=== PATIENT | male | born 1950 | race Caucasian/White ===

== ENCOUNTER 2017-03-29 15:26 | Inpatient (IN) | payer MEDICARE, BC ==
[~2017-03-29] VITALS: Ht 175.3 cm; Wt 95.1 kg
[2017-03-29 15:35] VITALS: BP 114/59; PULSE 102; RESP 20; TEMP 98.8; O2SAT 94
[2017-03-29 15:59] VITALS: TEMP 99.9
--- NOTE | 2017-03-29 16:00 | PD ---
HPI Chief Complaint: Fever Time Seen by Provider: 15:39 Travel History International Travel<30 days: No Contact w/Intl Traveler<30days: No Traveled to known affect area: No History of Present Illness HPI This is a 66-year-old male who is currently residing in a [facility]ci who has a spinal cord injury who presents to the emergency department with fever. He says he hasn't felt sick lately. He was evidently given Bactrim at his fci however he continued to have fever so they sent him to the emergency department. He does not have an indwelling Mckeon catheter. They also noticed some blood in his diaper around his urethra. PFSH Past Medical History Atrial Fibrillation: Yes Chest Pain: Yes Diabetes: Yes Patient Takes Glucophage: No Hypertension: Yes Past Surgical History Other Surgery: Yes (anterior cervical diskectomy & fusion) Social History Alcohol Use: No Tobacco Use: No Substance Use: No Allergies-Medications (Allergen,Severity, Reaction): Coded Allergies: No Known Allergies (Unverified , 03/29/17) Reported Meds & Prescriptions Reported Meds & Active Scripts Active Reported Alprazolam 0.25 Mg Tab 0.25 Mg PO TID PRN Senna Plus 8.6-50 mg (Sennosides-Docusate Sodium) 1 Tab Tab 2 Tab PO Gabapentin 100 Mg Cap 100 Mg PO TID Culturelle (Lactobacillus Rhamnosus (GG)) 10 B Cell Cap 1 Cap PO DAILY Polyethylene Glycol 3350 Powder (Polyethylene Glycol) 17 Gm Pow 17 Gm PO DAILY Testosterone (Testosterone (Bulk)) 1 Pow Pow 50 Mg TOPICAL DAILY Multaq (Dronedarone) 400 Mg Tab 400 Mg PO BID Famotidine 20 Mg Tab 20 Mg PO BID Furosemide 20 Mg Tab 20 Mg PO DAILY Glipizide 5 Mg Tab 5 Mg PO DAILY Take 30 minutes before a meal Lisinopril 2.5 Mg Tab 2.5 Mg PO DAILY Metoprolol Tartrate 25 Mg Tab 25 Mg PO BID Potassium Chloride ER (Potassium Chloride) 20 Meq Tab 20 Meq PO DAILY Levocetirizine 5 Mg Tab 5 Mg PO HS Ibuprofen 200 Mg Cap 200 Mg PO Q4H PRN Levothyroxine (Levothyroxine Sodium) 50 Mcg Tab 50 Mcg PO DAILY Culturelle (Lactobacillus Rhamnosus (GG)) 10 B Cell Cap 1 Cap PO DAILY Sulfamethoxazole-Trimethoprim 800-160 Mg Tab 1 Tab PO BID Review of Systems Except as stated in HPI: all other systems reviewed are Neg Physical Exam Narrative GENERAL:Well appearing, no acute distress SKIN: vesicular and crusted rash over the right shoulder extending down to the right forearm and up the right neck ending at the midline HEAD: Atraumatic. Normocephalic. EYES: Pupils equal and round. No injection or drainage. ENT: Moist mucous membranes NECK: Trachea midline. CARDIOVASCULAR: Regular rate and rhythm. No murmur appreciated. RESPIRATORY: Clear to auscultation. Breath sounds equal bilaterally. GASTROINTESTINAL: Abdomen soft, non-tender, nondistended. : small abrasion on the head of the penis immediately below the urethra bleeding MUSCULOSKELETAL: No obvious deformities. NEUROLOGICAL: Awake and alert. No obvious cranial nerve deficits. Weak in the right upper and right lower extremities. PSYCHIATRIC: Appropriate mood and affect; insight and judgment normal. Data Data Last Documented VS Vital Signs Date Time Temp Pulse Resp B/P Pulse Ox O2 Delivery O2 Flow Rate FiO2 03/29/17 15:59 99.9 03/29/17 15:35 102 20 114/59 94 Orders Complete Blood Count With Diff (03/29/17 15:39) Comprehensive Metabolic Panel (03/29/17 15:39) Lactic Acid Sepsis Protocol (03/29/17 15:39) Urinalysis - C+S If Indicated (03/29/17 15:39) Blood Culture (03/29/17 15:39) Chest, Single Ap (03/29/17 15:39) Blood Glucose (03/29/17 15:39) Ecg Monitoring (03/29/17 15:39) Iv Access Insert/Monitor (03/29/17 15:39) Oximetry (03/29/17 15:39) Oxygen Administration (03/29/17 15:39) Urinary Catheter Insert/Apply (03/29/17 16:01) Urine Culture (03/29/17 15:45) Cefepime Inj (Maxipime Inj) (03/29/17 16:45) Vancomycin Inj (Vancomycin Inj) (03/29/17 16:45) Sodium Chlor 0.9% 1000 Ml Inj (Ns 1000 M (03/29/17 16:45) Sodium Chlor 0.9% 1000 Ml Inj (Ns 1000 M (03/29/17 16:45) Sodium Chlor 0.9% 1000 Ml Inj (Ns 1000 M (03/29/17 16:41) Valacyclovir (Valtrex) (03/29/17 17:15) Admit Order (Ed Use Only) (03/29/17 17:19) Labs Laboratory Tests Test 03/29/17 03/29/17 15:40 15:45 White Blood Count 5.3 TH/MM3 Red Blood Count 3.07 MIL/MM3 Hemoglobin 10.7 GM/DL Hematocrit 31.8 % Mean Corpuscular Volume 103.5 FL Mean Corpuscular Hemoglobin 34.9 PG Mean Corpuscular Hemoglobin 33.7 % Concent Red Cell Distribution Width 14.7 % Platelet Count 65 TH/MM3 Mean Platelet Volume 8.2 FL Neutrophils (%) (Auto) 80.6 % Lymphocytes (%) (Auto) 12.6 % Monocytes (%) (Auto) 6.1 % Eosinophils (%) (Auto) 0.5 % Basophils (%) (Auto) 0.2 % Neutrophils # (Auto) 4.2 TH/MM3 Lymphocytes # (Auto) 0.7 TH/MM3 Monocytes # (Auto) 0.3 TH/MM3 Eosinophils # (Auto) 0.0 TH/MM3 Basophils # (Auto) 0.0 TH/MM3 CBC Comment AUTO DIFF Differential Comment AUTO DIFF CONFIRMED Sodium Level 139 MEQ/L Potassium Level 3.8 MEQ/L Chloride Level 104 MEQ/L Carbon Dioxide Level 26.9 MEQ/L Anion Gap 8 MEQ/L Blood Urea Nitrogen 19 MG/DL Creatinine 0.66 MG/DL Estimat Glomerular Filtration 120 ML/MIN Rate Random Glucose 90 MG/DL Lactic Acid Level 3.0 mmol/L Calcium Level 8.3 MG/DL Total Bilirubin 1.0 MG/DL Aspartate Amino Transf 17 U/L (AST/SGOT) Alanine Aminotransferase 18 U/L (ALT/SGPT) Alkaline Phosphatase 103 U/L Total Protein 6.4 GM/DL Albumin 2.6 GM/DL Urine Color YELLOW Urine Turbidity HAZY Urine pH 5.5 Urine Specific [place] 1.013 Urine Protein TRACE mg/dL Urine Glucose (UA) NEG mg/dL Urine Ketones NEG mg/dL Urine Occult Blood LARGE Urine Nitrite POS Urine Bilirubin NEG Urine Urobilinogen LESS THAN 2.0 MG/DL Urine Leukocyte Esterase LARGE Urine RBC 145 /hpf Urine WBC 124 /hpf Urine WBC Clumps FEW Urine Bacteria MANY /hpf Urine Mucus FEW /lpf Microscopic Urinalysis Comment CATH-CULTURE IND [facility] Medical Decision Making Medical Screen Exam Complete: Yes Emergency Medical Condition: Yes Interpretation(s) temp 99.9, tachycardic, normotensive no leukocytosis platelets 65 -> 93 on 03/24 macrocytic anemia electrolytes within normal limits lactic acid 3.0 Differential Diagnosis Urinary tract infection, pneumonia, viral syndrome, dehydration Narrative Course This is a 66-year-old male who presents to the emergency department with fever. He recently sustained a nontraumatic spinal cord lesion during neurosurgery leaving him with paralysis in the right side. He was placed on a monitor and an IV was established. Labs demonstrate a downward trending platelet count and a lactic acid of 3. He has an obvious urinary tract infection. On arrival he was started on broad-spectrum antibiotics. He was given 2-1/2 L of fluid in the setting of his elevated lactic acid. Patient will be admitted for continued antibiotic therapy. He also has a rash on his upper extremity which I think is herpes zoster. He was started on valacyclovir in the emergency department. Diagnosis Primary Impression: Severe sepsis Admitting Information Admitting Physician Requests: Admit Mindy Hale MD Mar 29, 2017 16:00
[2017-03-29 16:14] LABS: AUTOMATED NEUTROPHIL # 4.2 TH/MM3 (1.8-7.7); BASOPHIL % 0.2 % (0.0-2.0); EOSINOPHIL % 0.5 % (0.0-4.0); HEMATOCRIT 31.8 % (39.0-51.0); LYMPH % 12.6 % (9.0-44.0); LYMPHOCYTE # 0.7 TH/MM3 (1.0-4.8); MEAN CELL VOLUME 103.5 FL (80.0-100.0); MEAN CORPUSCULAR HEMOGLOBIN 34.9 PG (27.0-34.0); MEAN CORPUSCULAR HGB CONC 33.7 % (32.0-36.0); MONO % 6.1 % (0.0-8.0); NEUT % 80.6 % (16.0-70.0); PLATELET COUNT 65 TH/MM3 (150-450); RED BLOOD COUNT 3.07 MIL/MM3 (4.50-5.90); RED CELL DISTRIBUTION WIDTH 14.7 % (11.6-17.2); WHITE BLOOD COUNT 5.3 TH/MM3 (4.0-11.0)
[2017-03-29 16:16] LABS: HEMO FLAGS AUTO DIFF
[2017-03-29 16:24] LABS: BACTERIA, URINE MANY /hpf; BLOOD, URINE LARGE (NEG); COMMENT (UR) CATH-CULTURE IND; CULTURE IF INDICATED CATH CULTURE IND; GLUCOSE,URINE NEG (NEG); KETONE, URINE NEG (NEG); MUCUS URINE FEW /lpf (OCC); NITRITE,URINE POS (NEG); PH, URINE 5.5 (5.0-8.5); URINE COLOR YELLOW (YELLW/STRAW)
[2017-03-29] MEDS ORDERED: SODIUM CHLOR 0.9% 1000 ML INJ 700 ML IV ONE (16:41)
[2017-03-29] MEDS ORDERED: SODIUM CHLOR 0.9% 1000 ML INJ 1,000 ML IV ONE ×2 (16:45)
[2017-03-29] MEDS ORDERED: CEFEPIME INJ 2,000 MG in SODIUM CHLORIDE 0.9% INJ 100 ML IV ONE (16:45)
[2017-03-29] MEDS ORDERED: VANCOMYCIN INJ 1,300 MG in SODIUM CHLORID 0.9% 500 ML INJ 500 ML IV ONE (16:45)
[2017-03-29 16:51] LABS: SCAN/DIFF AUTO DIFF CONFIRMED
[2017-03-29 16:57] LABS: ANION GAP 8 MEQ/L (5-15); AST (GOT) 17 U/L (15-37); BICARBONATE 26.9 MEQ/L (21.0-32.0); BLOOD UREA NITROGEN 19 MG/DL (7-18); CHLORIDE 104 MEQ/L (98-107); GLOMERULAR FILTRATION RATE 120 ML/MIN (>89); POTASSIUM 3.8 MEQ/L (3.5-5.1); SODIUM (NA) 139 MEQ/L (136-145)
[2017-03-29 17:01] LABS: ALKALINE PHOSPHATASE 103 U/L (45-117); ALT (GPT) 18 U/L (12-78)
[2017-03-29] MEDS ORDERED: valACYclovir HCL 500 MG TAB PO ONE (17:15)
--- NOTE | 2017-03-29 17:19 | RADRPT ---
EXAM DATE/TIME: 03/29/2017 16:46 [place] COMPARISON: No previous studies available for comparison. INDICATIONS : Fever MEDICAL HISTORY : Diabetes mellitus type II. Hypertension Atrial Fib SURGICAL HISTORY : Fusion, cervical. CABG. ENCOUNTER: Initial ACUITY: 1 day PAIN SCORE: 0/10 LOCATION: Bilateral chest FINDINGS: A single view of the chest demonstrates the lungs to be symmetrically aerated without evidence of mas s, infiltrate or effusion. Minimal basilar atelectasis. Postoperative median sternotomy. CONCLUSION: 1. Minimal basilar atelectasis. Postop CABG. Blayne Dwyer MD on March 29, 2017 at 17:17 Board Certified Radiologist. This report was verified electronically.
[2017-03-29] MEDS ORDERED: TEST-55 TOPICAL (17:26)
[2017-03-29] MEDS ORDERED: LEVO50TA4 PO (17:26)
[2017-03-29] MEDS ORDERED: POTA-163 PO (17:26)
[2017-03-29] MEDS ORDERED: GLIP5TAB8 PO (17:26)
[2017-03-29] MEDS ORDERED: MULT400T PO (17:26)
[2017-03-29] MEDS ORDERED: GABA100C4 PO (17:26)
[2017-03-29] MEDS ORDERED: POLY17S PO (17:26)
[2017-03-29] MEDS ORDERED: SULF1TAB23 PO (17:26)
[2017-03-29] MEDS ORDERED: METO25TA3 PO (17:26)
[2017-03-29] MEDS ORDERED: CULT10CA4 PO ×2 (17:26)
[2017-03-29] MEDS ORDERED: FURO20TA PO (17:26)
[2017-03-29] MEDS ORDERED: LISI2.5T3 PO (17:26)
[2017-03-29] MEDS ORDERED: FAMO20TA2 PO (17:26)
[2017-03-29] MEDS ORDERED: SENN1TAB PO (17:26)
[2017-03-29] MEDS ORDERED: IBUP200C PO (17:26)
[2017-03-29] MEDS ORDERED: LEVOTAB PO (17:26)
[2017-03-29 17:39] VITALS: BP 116/55; PULSE 95; RESP 18; O2SAT 94
[2017-03-29] MEDS ORDERED: ALPR0.25 PO (17:45)
[2017-03-29 18:07] LABS: LACTIC ACID GHOST NOT REPORTABLE
[2017-03-29] MEDS ORDERED: ALPRAZolam 0.25 MG TAB PO PRN (18:15)
[2017-03-29] MEDS ORDERED: ACETAMINOPHEN 325 MG TAB PO PRN (18:15)
[2017-03-29] MEDS ORDERED: LACTULOSE SYRUP 20 GM/30 ML CUP PO PRN (18:15)
[2017-03-29] MEDS ORDERED: GLUCAGON 1 MG/ML VIAL OTHER PRN (18:15)
[2017-03-29] MEDS ORDERED: ONDANSETRON HCL 4 MG/2 ML VIAL IVP PRN (18:15)
[2017-03-29] MEDS ORDERED: MAGNESIUM HYDROXIDE SUSP 30 ML CUP PO PRN (18:15)
[2017-03-29] MEDS ORDERED: DEXTROSE 50% IN WATER 50 ML VIAL(D50) IV PRN (18:15)
[2017-03-29] MEDS ORDERED: ACETAMINOPHEN/HYDROcodone 325 MG/7.5 MG TAB PO PRN (18:15)
[2017-03-29] MEDS ORDERED: BISACODYL 10 MG SUPP RECTAL PRN (18:15)
[2017-03-29] MEDS ORDERED: SENNOSIDES 8.6 MG TAB PO PRN (18:15)
--- NOTE | 2017-03-29 18:23 | HHI.HP ---
HPI Service [facility] Primary Care Physician Non-Staff Admission Diagnosis urosepsis Diagnoses: Chief Complaint: UTI Travel History International Travel<30 Days: No Contact w/Intl Traveler <30 Da: No Traveled to Known Affected Are: No Sepsis Criteria SIRS Criteria (2 or more): Heart rate over 90 Severe Sepsis (+one): Lactate >2 History of Present Illness Written by Maxim Jara, acting as scribe for Dr. Blood on 03/29/17 at 18:01. 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 fib, HTN, DM, hypothyroidism, neuropathy, GERD who was sent from SNF for UTI. The patient is seen with his and brother at bedside. The patient is currently at SNF for rehabilitation due to recent spinal cord injury and paralysis. He was having fever and chills at SNF. Patient's reports temperature was 101.9. She states that they gave him Tylenol and Bactrim 1 cm into the ED. Patient states that he has been having lower abdominal discomfort for the past few days. He denies any previous dysuria or hematuria. Patient states he normally voids spontaneously at baseline. He denies any diarrhea, nausea, vomiting. He has been constipated. The patient has been having a rash on his right shoulder for the past 4 days. They thought that this might be do to a medication reaction. He denies any pain , burning, itching of the rash. He did have chickenpox as a child and has not received a shingles vaccine. 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 Atrial fibrillation Hypertension Diabetes mellitus Neuropathy GERD Hypothyroidism Past Surgical History ACDF Emergent lower back surgery Right knee surgery Reported Medications Alprazolam 0.25 Mg Tab 0.25 Mg PO TID PRN Senna Plus 8.6-50 mg (Sennosides-Docusate Sodium) 1 Tab Tab 2 Tab PO Gabapentin 100 Mg Cap 100 Mg PO TID Culturelle (Lactobacillus Rhamnosus (GG)) 10 B Cell Cap 1 Cap PO DAILY Polyethylene Glycol 3350 Powder (Polyethylene Glycol) 17 Gm Pow 17 Gm PO DAILY Testosterone (Testosterone (Bulk)) 1 Pow Pow 50 Mg TOPICAL DAILY Multaq (Dronedarone) 400 Mg Tab 400 Mg PO BID Famotidine 20 Mg Tab 20 Mg PO BID Furosemide 20 Mg Tab 20 Mg PO DAILY Glipizide 5 Mg Tab 5 Mg PO DAILY Take 30 minutes before a meal Lisinopril 2.5 Mg Tab 2.5 Mg PO DAILY Metoprolol Tartrate 25 Mg Tab 25 Mg PO BID Potassium Chloride ER (Potassium Chloride) 20 Meq Tab 20 Meq PO DAILY Levocetirizine 5 Mg Tab 5 Mg PO HS Ibuprofen 200 Mg Cap 200 Mg PO Q4H PRN Levothyroxine (Levothyroxine Sodium) 50 Mcg Tab 50 Mcg PO DAILY Culturelle (Lactobacillus Rhamnosus (GG)) 10 B Cell Cap 1 Cap PO DAILY Sulfamethoxazole-Trimethoprim 800-160 Mg Tab 1 Tab PO BID Allergies: Coded Allergies: No Known Allergies (Unverified , 03/29/17) Active Ordered Medications Current Medications Medications (Trade) Dose Ordered Sig/Lily Route Start Time Stop Time Status Last Admin Vancomycin HCl 1300 mg/Sodium Chloride 513 ml @ 250 mls/hr ONCE ONCE IV 03/29/17 16:45 03/29/17 18:48 03/29/17 17:41 (NS 1000 ml Inj) 1,000 ml @ 100 mls/hr Q10H IV 03/29/17 18:00 (NS Flush) 2 ml BID IV FLUSH 03/29/17 21:00 (Xanax) 0.25 mg TID PRN PO 03/29/17 18:15 UNV (Multaq) 400 mg BID PO 03/29/17 21:00 UNV (Pepcid) 20 mg BID PO 03/29/17 21:00 UNV (Lasix) 20 mg DAILY PO 03/30/17 09:00 UNV (Neurontin) 100 mg TID PO 03/30/17 09:00 UNV (Synthroid) 50 mcg DAILY PO 03/30/17 09:00 UNV (Lopressor) 25 mg BID PO 03/29/17 21:00 UNV (Miralax) 17 gm DAILY PO 03/30/17 09:00 UNV (KCl) 20 meq DAILY PO 03/30/17 09:00 UNV Non-Formulary Medication 1 cap DAILY PO 03/30/17 09:00 UNV Non-Formulary Medication 5 mg HS PO 03/29/17 21:00 UNV Non-Formulary Medication 2.5 mg 2.5 mg DAILY PO 03/30/17 09:00 UNV (Maxipime Inj/NS Inj) 100 ml @ 100 mls/hr Q12H IV 03/29/17 18:15 UNV Family History Mother had diabetes and heart disease Social History SNF resident Quit smoking 20 years ago Doesn't drink Physical Exam Vital Signs Vital Signs Date Time Temp Pulse Resp B/P Pulse Ox O2 Delivery O2 Flow Rate FiO2 03/29/17 17:39 95 18 116/55 94 Room Air 03/29/17 15:59 99.9 03/29/17 15:35 98.8 102 20 114/59 94 Physical Exam GENERAL: Well-developed well-nourished. In no acute distress. SKIN: Warm and dry. Crusted vesicular rash in dermatomal distribution over the right shoulder and back to the midline of the right chest. HEENT: Normocephalic. Pupils equal and round. Mucous membranes pink and moist. CARDIOVASCULAR: Regular rate and rhythm. No murmur appreciated. RESPIRATORY: No accessory muscle use. Clear to auscultation. Breath sounds equal bilaterally. GASTROINTESTINAL: Abdomen soft, non-tender, nondistended. Bowel sounds x4. : Mckeon catheter in place. Mckeon collecting bag with some hematuria. Urethral meatus with some dried blood. MUSCULOSKELETAL: No obvious deformities. No clubbing or cyanosis. No edema. NEUROLOGICAL: Awake and alert. Unable to lift right arm or leg against gravity. Strength 4/5 on the left. Normal speech. PSYCHIATRIC: Appropriate mood and affect; insight and judgment normal. Laboratory Laboratory Tests Test 03/29/17 03/29/17 15:40 15:45 White Blood Count 5.3 Red Blood Count 3.07 Hemoglobin 10.7 Hematocrit 31.8 Mean Corpuscular Volume 103.5 Mean Corpuscular Hemoglobin 34.9 Mean Corpuscular Hemoglobin 33.7 Concent Red Cell Distribution Width 14.7 Platelet Count 65 Mean Platelet Volume 8.2 Neutrophils (%) (Auto) 80.6 Lymphocytes (%) (Auto) 12.6 Monocytes (%) (Auto) 6.1 Eosinophils (%) (Auto) 0.5 Basophils (%) (Auto) 0.2 Neutrophils # (Auto) 4.2 Lymphocytes # (Auto) 0.7 Monocytes # (Auto) 0.3 Eosinophils # (Auto) 0.0 Basophils # (Auto) 0.0 CBC Comment AUTO DIFF Differential Comment AUTO DIFF CONFIRMED Sodium Level 139 Potassium Level 3.8 Chloride Level 104 Carbon Dioxide Level 26.9 Anion Gap 8 Blood Urea Nitrogen 19 Creatinine 0.66 Estimat Glomerular Filtration 120 Rate Random Glucose 90 Lactic Acid Level 3.0 Calcium Level 8.3 Total Bilirubin 1.0 Aspartate Amino Transf 17 (AST/SGOT) Alanine Aminotransferase 18 (ALT/SGPT) Alkaline Phosphatase 103 Total Protein 6.4 Albumin 2.6 Urine Color YELLOW Urine Turbidity HAZY Urine pH 5.5 Urine Specific [place] 1.013 Urine Protein TRACE Urine Glucose (UA) NEG Urine Ketones NEG Urine Occult Blood LARGE Urine Nitrite POS Urine Bilirubin NEG Urine Urobilinogen LESS THAN 2.0 Urine Leukocyte Esterase LARGE Urine RBC 145 Urine WBC 124 Urine WBC Clumps FEW Urine Bacteria MANY Urine Mucus FEW Microscopic Urinalysis Comment CATH-CULTURE IND Date/Time Procedure Status Source Growth 03/29/17 15:45 Urine Culture Received Urine Catheterized Urine Pending 03/29/17 15:45 Aerobic Blood Culture Received Blood Peripheral Pending 03/29/17 15:45 Anaerobic Blood Culture Received Blood Peripheral Pending Result Diagram: 03/29/17 1540 03/29/17 1540 Imaging Last Impressions Chest X-Ray 03/29/17 1539 Signed Impressions: Service Date/Time: Wednesday, March 29, 2017 16:46 - CONCLUSION: 1. Minimal basilar atelectasis. Postop CABG. 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 fib, HTN, DM, hypothyroidism, neuropathy, GERD who was sent from SNF for UTI UTI with suspected severe sepsis: UA with evidence of infection. Rectal temperature 99.9. Temp reportedly 101.9 earlier today, received Bactrim and Tylenol. Tachycardia. No leukocytosis. Lactic acid 3.0. Continue IV cefepime. Follow up urine and blood cultures. IVF. Shingles: Lesions already appear to be healing. Continue the patient on Valtrex. Will need shingles vaccination when clinically improved. Thrombocytopenia: Platelets 65, and a previous labs for comparison. Secondary to acute infection? Follow-up CBC. Watch for any uncontrolled bleeding. Partial paralysis: Secondary to recent spinal surgery. Continue PT. Outpatient neurosurgery follow-up. Atrial fibrillation: Continue metoprolol, Multaq. No anticoagulation for now thrombocytopenia. Monitor on telemetry. Diabetes mellitus: Hold home glipizide. SSI with Accu-Cheks. Other chronic medical conditions include allergies, hypothyroidism, hypertension , GERD, constipation, anxiety, neuropathic pain: Stable at this time and will continue home medications as indicated. DVT prophylaxis: SCDs Discussed Condition With Patient with and brother at bedside, ED staff This note was transcribed by vidya [Maxim jara]. I, Dr. Fito Blood personally performed the history, physical exam, and medical decision making; and confirmed the accuracy of the information in the transcribed note. Authenticated by Dr. Fito Blood on 03/29/17 at 19:17. Maxim Jara Mar 29, 2017 18:22 Fito Blood MD Mar 29, 2017 19:18
[2017-03-29] MEDS: SODIUM CHLOR 0.9% 1000 ML INJ 1,000 ML IV SCH (18:26)
[2017-03-29 19:14] VITALS: BP 116/55; PULSE 104; RESP 20; TEMP 97.7; O2SAT 94
[2017-03-29 20:03] VITALS: PULSE 103
[2017-03-29] MEDS: SODIUM CHLORIDE 0.9% FLUSH 10 ML FLUSH IV FLUSH SCH (21:00)
[2017-03-29] MEDS: INSULIN ASPART SUPPLEMENTAL SCALE SQ SCH (21:00)
[2017-03-29] MEDS: FAMOTIDINE 20 MG TAB PO SCH (23:08)
[2017-03-29] MEDS: DOCUSATE SODIUM 50 MG/SENNA 8.6 MG TAB PO SCH (23:08)
[2017-03-29] MEDS: valACYclovir HCL 500 MG TAB PO SCH (23:09)
[2017-03-29] MEDS: METOPROLOL TARTRATE 25 MG TAB PO SCH (23:09)
[2017-03-29] MEDS: DRONEDARONE 400 MG TAB PO SCH (23:09)
[2017-03-30] VITALS (8 sets, daily range): BP systolic 110–122; BP diastolic 54–71; PULSE 76–91; RESP 18–20; TEMP 97.7–99.6; O2SAT 96–98
[2017-03-30] MEDS: valACYclovir HCL 500 MG TAB PO SCH ×3 (05:08→21:45)
[2017-03-30] MEDS: LEVOTHYROXINE SODIUM 50 MCG TAB PO SCH (05:08)
[2017-03-30] MEDS: SODIUM CHLOR 0.9% 1000 ML INJ 1,000 ML IV SCH ×3 (05:13→21:43)
[2017-03-30] MEDS: CEFEPIME INJ 2,000 MG in SODIUM CHLORIDE 0.9% INJ 100 ML IV SCH ×2 (05:13→16:27)
[2017-03-30] MEDS: INSULIN ASPART SUPPLEMENTAL SCALE SQ SCH ×4 (05:55→21:00)
[2017-03-30] MEDS: POTASSIUM CHLORIDE 20 MEQ CONTROLLED RELEASE TAB PO SCH (08:51)
[2017-03-30] MEDS: DRONEDARONE 400 MG TAB PO SCH ×2 (08:51→17:27)
[2017-03-30] MEDS: METOPROLOL TARTRATE 25 MG TAB PO SCH ×2 (08:51→21:44)
[2017-03-30] MEDS: POLYETHYLENE GLYCOL 17 GM PKG PO SCH (08:51)
[2017-03-30] MEDS: FUROSEMIDE 20 MG TAB PO SCH (08:52)
[2017-03-30] MEDS: DOCUSATE SODIUM 50 MG/SENNA 8.6 MG TAB PO SCH ×2 (08:52→21:00)
[2017-03-30] MEDS: GABAPENTIN 100 MG CAP PO SCH ×3 (08:52→17:27)
[2017-03-30] MEDS: LISINOPRIL 5 MG TAB PO SCH (08:52)
[2017-03-30] MEDS: FAMOTIDINE 20 MG TAB PO SCH ×2 (08:52→21:45)
[2017-03-30] MEDS ORDERED: LEVOCETIRIZINE 5 MG PO SCH (09:00)
[2017-03-30] MEDS: SODIUM CHLORIDE 0.9% FLUSH 10 ML FLUSH IV FLUSH SCH ×2 (09:00→21:00)
[2017-03-30] MEDS ORDERED: NON-FORMULARY DRUG (Lactobacillus Rhamnosus (GG) (Culturelle) 1 CAP) PO SCH (09:00)
[2017-03-30 09:31] LABS: AUTOMATED NEUTROPHIL # 4.4 TH/MM3 (1.8-7.7); BASOPHIL % 0.3 % (0.0-2.0); EOSINOPHIL % 0.3 % (0.0-4.0); HEMATOCRIT 25.5 % (39.0-51.0); LYMPH % 24.2 % (9.0-44.0); LYMPHOCYTE # 1.6 TH/MM3 (1.0-4.8); MEAN CELL VOLUME 103.3 FL (80.0-100.0); MEAN CORPUSCULAR HEMOGLOBIN 35.8 PG (27.0-34.0); MEAN CORPUSCULAR HGB CONC 34.7 % (32.0-36.0); MONO % 8.1 % (0.0-8.0); NEUT % 67.1 % (16.0-70.0); PLATELET COUNT 64 TH/MM3 (150-450); RED BLOOD COUNT 2.47 MIL/MM3 (4.50-5.90); RED CELL DISTRIBUTION WIDTH 14.5 % (11.6-17.2); WHITE BLOOD COUNT 6.6 TH/MM3 (4.0-11.0)
[2017-03-30 09:38] LABS: HEMO FLAGS AUTO DIFF
[2017-03-30 10:01] LABS: BICARBONATE 26.4 MEQ/L (21.0-32.0); POTASSIUM 3.5 MEQ/L (3.5-5.1)
[2017-03-30 10:17] LABS: PLATELET ESTIMATE SMEAR LOW (NORMAL); PLATELET MORPHOLOGY NORMAL (NORMAL); SCAN/DIFF AUTO DIFF CONFIRMED
--- NOTE | 2017-03-30 17:20 | HHI.PR ---
Subjective Remarks Patient denies fever or pain Family at the bedside Urine is clear today Lactic acid decreased from 3-2.4 Patient on cefepime for UTI Objective Vitals Vital Signs Date Time Temp Pulse Resp B/P Pulse Ox O2 Delivery O2 Flow Rate FiO2 03/30/17 12:00 97.7 77 19 110/55 96 03/30/17 10:24 98 21 03/30/17 08:00 99.6 87 19 115/56 98 03/30/17 08:00 90 03/30/17 04:00 98.6 76 20 110/56 96 03/30/17 00:00 98.6 82 20 118/54 96 03/29/17 20:03 103 03/29/17 19:14 97.7 104 20 116/55 94 03/29/17 17:39 95 18 116/55 94 Room Air I/O 03/29/17 03/29/17 03/29/17 03/30/17 03/30/17 03/30/17 07:00 15:00 23:00 07:00 15:00 23:00 Intake Total 240 ml 952 ml Output Total 500 ml 600 ml Balance -260 ml 352 ml Intake Oral 240 ml IV Total 952 ml Output Urine Total 500 ml 600 ml # Bowel Movements 2 Result Diagram: 03/30/1744 03/30/1744 Objective Remarks GENERAL: Well-developed well-nourished. In no acute distress. SKIN: Warm and dry. Crusted vesicular rash in dermatomal distribution over the right shoulder and back to the midline of the right chest. HEENT: Normocephalic. Pupils equal and round. Mucous membranes pink and moist. CARDIOVASCULAR: Regular rate and rhythm. No murmur appreciated. RESPIRATORY: No accessory muscle use. Clear to auscultation. Breath sounds equal bilaterally. GASTROINTESTINAL: Abdomen soft, non-tender, nondistended. Bowel sounds x4. : Mckeon catheter in place. Mckeon collecting bag with some hematuria. Urethral meatus with some dried blood. MUSCULOSKELETAL: No obvious deformities. No clubbing or cyanosis. No edema. NEUROLOGICAL: Awake and alert. Unable to lift right arm or leg against gravity. Strength 4/5 on the left. Normal speech. PSYCHIATRIC: Appropriate mood and affect; insight and judgment normal. A/P Assessment and Plan 03/30: Urine looks clear today, no fever or pain or chills, continue cefepime, repeat lactic acid in a.m. 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 fib, HTN, DM, hypothyroidism, neuropathy, GERD who was sent from SNF for UTI UTI with suspected severe sepsis: UA with evidence of infection. Rectal temperature 99.9. Temp reportedly 101.9 earlier today, received Bactrim and Tylenol. Tachycardia. No leukocytosis. Lactic acid 3.0. Continue IV cefepime. Follow up urine and blood cultures. IVF. Shingles: Lesions already appear to be healing. Continue the patient on Valtrex. Will need shingles vaccination when clinically improved. Thrombocytopenia: Platelets 65, and a previous labs for comparison. Secondary to acute infection? Follow-up CBC. Watch for any uncontrolled bleeding. Partial paralysis: Secondary to recent spinal surgery. Continue PT. Outpatient neurosurgery follow-up. Atrial fibrillation: Continue metoprolol, Multaq. No anticoagulation for now thrombocytopenia. Monitor on telemetry. Diabetes mellitus: Hold home glipizide. SSI with Accu-Cheks. Other chronic medical conditions include allergies, hypothyroidism, hypertension , GERD, constipation, anxiety, neuropathic pain: Stable at this time and will continue home medications as indicated. DVT prophylaxis: Fito Pelaez MD Mar 30, 2017 17:20
[2017-03-31] VITALS (11 sets, daily range): BP systolic 111–134; BP diastolic 58–89; PULSE 69–86; RESP 16–20; TEMP 97.9–98.6; O2SAT 96–98
[2017-03-31 05:49] LABS: AUTOMATED NEUTROPHIL # 2.9 TH/MM3 (1.8-7.7); BASOPHIL % 0.2 % (0.0-2.0); EOSINOPHIL % 0.8 % (0.0-4.0); HEMATOCRIT 25.8 % (39.0-51.0); LYMPH % 36.1 % (9.0-44.0); LYMPHOCYTE # 1.8 TH/MM3 (1.0-4.8); MEAN CELL VOLUME 103.2 FL (80.0-100.0); MEAN CORPUSCULAR HEMOGLOBIN 34.6 PG (27.0-34.0); MEAN CORPUSCULAR HGB CONC 33.5 % (32.0-36.0); NEUT % 55.9 % (16.0-70.0); PLATELET COUNT 64 TH/MM3 (150-450); RED CELL DISTRIBUTION WIDTH 14.5 % (11.6-17.2); WHITE BLOOD COUNT 5.1 TH/MM3 (4.0-11.0)
[2017-03-31] MEDS: valACYclovir HCL 500 MG TAB PO SCH ×3 (05:51→20:33)
[2017-03-31] MEDS: CEFEPIME INJ 2,000 MG in SODIUM CHLORIDE 0.9% INJ 100 ML IV SCH ×2 (05:51→17:58)
[2017-03-31] MEDS: LEVOTHYROXINE SODIUM 50 MCG TAB PO SCH (05:52)
[2017-03-31 05:54] LABS: HEMO FLAGS AUTO DIFF
[2017-03-31] MEDS: INSULIN ASPART SUPPLEMENTAL SCALE SQ SCH ×4 (06:05→20:35)
[2017-03-31 06:13] LABS: POTASSIUM 3.7 MEQ/L (3.5-5.1)
[2017-03-31 07:11] LABS: OVALOCYTES 1+ (NORMAL)
[2017-03-31 07:12] LABS: PLATELET ESTIMATE SMEAR LOW (NORMAL); PLATELET MORPHOLOGY NORMAL (NORMAL); SCAN/DIFF AUTO DIFF CONFIRMED
[2017-03-31] MEDS: POLYETHYLENE GLYCOL 17 GM PKG PO SCH (08:40)
[2017-03-31] MEDS: LISINOPRIL 5 MG TAB PO SCH (08:41)
[2017-03-31] MEDS: GABAPENTIN 100 MG CAP PO SCH ×3 (08:41→17:59)
[2017-03-31] MEDS: FUROSEMIDE 20 MG TAB PO SCH (08:41)
[2017-03-31] MEDS: METOPROLOL TARTRATE 25 MG TAB PO SCH ×2 (08:42→20:31)
[2017-03-31] MEDS: FAMOTIDINE 20 MG TAB PO SCH ×2 (08:42→20:31)
[2017-03-31] MEDS: DRONEDARONE 400 MG TAB PO SCH ×2 (08:42→17:56)
[2017-03-31] MEDS: POTASSIUM CHLORIDE 20 MEQ CONTROLLED RELEASE TAB PO SCH (08:42)
[2017-03-31] MEDS: DOCUSATE SODIUM 50 MG/SENNA 8.6 MG TAB PO SCH ×2 (08:43→20:32)
[2017-03-31] MEDS: SODIUM CHLORIDE 0.9% FLUSH 10 ML FLUSH IV FLUSH SCH ×2 (08:52→20:31)
[2017-03-31] MEDS: SODIUM CHLOR 0.9% 1000 ML INJ 1,000 ML IV SCH ×2 (08:53→20:31)
--- NOTE | 2017-03-31 13:59 | HHI.PR ---
Subjective Remarks Called by the nurse the family seemed the patient is getting confused on and off After seeing the patient in discussing with his he seems to be awake and alert is a little slow, maybe getting confused on a hospital environment He has no leukocytosis lactic acid normalized, urine culture showed Klebsiella pneumonia sensitive to cefepime Patient was awake alert oriented 3 to me, will do neuro check, will follow blood culture, hopefully discharge in a.m. if all stable Objective Vitals Vital Signs Date Time Temp Pulse Resp B/P Pulse Ox O2 Delivery O2 Flow Rate FiO2 03/31/17 12:20 98.0 73 20 111/89 96 03/31/17 10:30 97 21 03/31/17 08:00 98.4 83 20 123/61 97 03/31/17 04:00 98.1 86 20 126/58 96 03/31/17 00:00 98.6 77 20 111/64 98 03/30/17 20:18 91 03/30/17 20:00 98.1 88 20 122/59 97 03/30/17 16:00 99.4 84 18 113/71 97 I/O 03/30/17 03/30/17 03/30/17 03/31/17 03/31/17 03/31/17 07:00 15:00 23:00 07:00 15:00 23:00 Intake Total 952 ml 480 ml Output Total 600 ml 1700 ml 500 ml 500 ml Balance 352 ml -1220 ml -500 ml -500 ml Intake Oral 480 ml IV Total 952 ml Output Urine Total 600 ml 1700 ml 500 ml 500 ml # Bowel Movements 2 0 Result Diagram: 03/31/17 0530 03/31/17 0530 Objective Remarks GENERAL: Well-developed well-nourished. In no acute distress. SKIN: Warm and dry. Crusted vesicular rash in dermatomal distribution over the right shoulder and back to the midline of the right chest. HEENT: Normocephalic. Pupils equal and round. Mucous membranes pink and moist. CARDIOVASCULAR: Regular rate and rhythm. No murmur appreciated. RESPIRATORY: No accessory muscle use. Clear to auscultation. Breath sounds equal bilaterally. GASTROINTESTINAL: Abdomen soft, non-tender, nondistended. Bowel sounds x4. : Mckeon catheter in place. Mckeon collecting bag with some hematuria. Urethral meatus with some dried blood. MUSCULOSKELETAL: No obvious deformities. No clubbing or cyanosis. No edema. NEUROLOGICAL: Awake and alert. Unable to lift right arm or leg against gravity. Strength 4/5 on the left. Normal speech. PSYCHIATRIC: Appropriate mood and affect; insight and judgment normal. A/P Assessment and Plan 03/30: Urine looks clear today, no fever or pain or chills, continue cefepime, repeat lactic acid in a.m. 03/31: Patient doing well, no leukocytosis, lactic acid normalized, he's eating will DC iv fluid, will DC Mckeon. 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 fib, HTN, DM, hypothyroidism, neuropathy, GERD who was sent from SNF for UTI UTI with suspected severe sepsis: UA with evidence of infection. Rectal temperature 99.9. Temp reportedly 101.9 earlier today, received Bactrim and Tylenol. Tachycardia. No leukocytosis. Lactic acid 3.0. Continue IV cefepime. Follow up urine and blood cultures. IVF. Shingles: Lesions already appear to be healing. Continue the patient on Valtrex. Will need shingles vaccination when clinically improved. Thrombocytopenia: Platelets 65, and a previous labs for comparison. Secondary to acute infection? Follow-up CBC. Watch for any uncontrolled bleeding. Partial paralysis: Secondary to recent spinal surgery. Continue PT. Outpatient neurosurgery follow-up. Atrial fibrillation: Continue metoprolol, Multaq. No anticoagulation for now thrombocytopenia. Monitor on telemetry. Diabetes mellitus: Hold home glipizide. SSI with Accu-Cheks. Other chronic medical conditions include allergies, hypothyroidism, hypertension , GERD, constipation, anxiety, neuropathic pain: Stable at this time and will continue home medications as indicated. DVT prophylaxis: Fito Pelaez MD Mar 31, 2017 13:58
[2017-04-01 05:30] VITALS: BP 145/65; PULSE 74; RESP 18; TEMP 98.1; O2SAT 98
[2017-04-01] MEDS: SODIUM CHLOR 0.9% 1000 ML INJ 1,000 ML IV SCH (05:43)
[2017-04-01] MEDS: CEFEPIME INJ 2,000 MG in SODIUM CHLORIDE 0.9% INJ 100 ML IV SCH (05:43)
[2017-04-01] MEDS: LEVOTHYROXINE SODIUM 50 MCG TAB PO SCH (05:50)
[2017-04-01] MEDS: valACYclovir HCL 500 MG TAB PO SCH ×2 (05:51→15:23)
[2017-04-01] MEDS: INSULIN ASPART SUPPLEMENTAL SCALE SQ SCH ×2 (06:07→11:00)
[2017-04-01 08:00] VITALS: BP 121/67; PULSE 91; RESP 18; TEMP 97.7; O2SAT 98
[2017-04-01] MEDS: GABAPENTIN 100 MG CAP PO SCH ×2 (09:00→13:00)
[2017-04-01] MEDS: POLYETHYLENE GLYCOL 17 GM PKG PO SCH (10:01)
[2017-04-01] MEDS: METOPROLOL TARTRATE 25 MG TAB PO SCH (10:01)
[2017-04-01] MEDS: DRONEDARONE 400 MG TAB PO SCH (10:01)
[2017-04-01] MEDS: FUROSEMIDE 20 MG TAB PO SCH (10:01)
[2017-04-01] MEDS: POTASSIUM CHLORIDE 20 MEQ CONTROLLED RELEASE TAB PO SCH (10:02)
[2017-04-01] MEDS: LISINOPRIL 5 MG TAB PO SCH (10:03)
[2017-04-01] MEDS: DOCUSATE SODIUM 50 MG/SENNA 8.6 MG TAB PO SCH (10:18)
[2017-04-01] MEDS: FAMOTIDINE 20 MG TAB PO SCH (10:18)
[2017-04-01] MEDS: SODIUM CHLORIDE 0.9% FLUSH 10 ML FLUSH IV FLUSH SCH (10:19)
[2017-04-01] MEDS ORDERED: CIPR-9 PO (11:22)
[2017-04-01] MEDS ORDERED: VALT500T PO (11:22)
[2017-04-01 12:00] VITALS: BP 139/63; PULSE 69; RESP 18; TEMP 97.8; O2SAT 98
[2017-04-01 13:45] VITALS: O2SAT 98
--- NOTE | 2017-04-01 17:53 | HHI.DS ---
Discharge Summary Admission Date Mar 29, 2017 at 17:20 Discharge Date: Apr 01, 2017 Admitting Diagnosis urosepsis (1) UTI due to Klebsiella species ICD Code: N39.0 Procedures See below Brief History - From Admission Written by Maxmi Jara, acting as scribe for Dr. Blood on 03/29/17 at 18:01. 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 fib, HTN, DM, hypothyroidism, neuropathy, GERD who was sent from SNF for UTI. The patient is seen with his and brother at bedside. The patient is currently at SNF for rehabilitation due to recent spinal cord injury and paralysis. He was having fever and chills at SNF. Patient's reports temperature was 101.9. She states that they gave him Tylenol and Bactrim 1 cm into the ED. Patient states that he has been having lower abdominal discomfort for the past few days. He denies any previous dysuria or hematuria. Patient states he normally voids spontaneously at baseline. He denies any diarrhea, nausea, vomiting. He has been constipated. The patient has been having a rash on his right shoulder for the past 4 days. They thought that this might be do to a medication reaction. He denies any pain , burning, itching of the rash. He did have chickenpox as a child and has not received a shingles vaccine. CBC/BMP: 03/31/17 0530 03/31/17 0530 Significant Findings Laboratory Tests Test 03/29/17 03/30/17 03/31/17 21:53 08:44 05:30 Lactic Acid Level 2.4 mmol/L (0.4-2.0) Red Blood Count 2.47 MIL/MM3 2.50 MIL/MM3 (4.50-5.90) (4.50-5.90) Hemoglobin 8.8 GM/DL 8.7 GM/DL (13.0-17.0) (13.0-17.0) Hematocrit 25.5 % 25.8 % (39.0-51.0) (39.0-51.0) Mean Corpuscular Volume 103.3 FL 103.2 FL (80.0-100.0) (80.0-100.0) Mean Corpuscular Hemoglobin 35.8 PG 34.6 PG (27.0-34.0) (27.0-34.0) Platelet Count 64 TH/MM3 64 TH/MM3 (150-450) (150-450) Monocytes (%) (Auto) 8.1 % (0.0-8.0) Platelet Estimate LOW (NORMAL) LOW (NORMAL) Chloride Level 109 MEQ/L 108 MEQ/L (98-107) (98-107) Creatinine 0.45 MG/DL 0.36 MG/DL (0.60-1.30) (0.60-1.30) Random Glucose 73 MG/DL (74-106) Calcium Level 8.0 MG/DL 8.0 MG/DL (8.5-10.1) (8.5-10.1) Ovalocytes 1+ (NORMAL) PE at Discharge GENERAL: Well-developed well-nourished. In no acute distress. SKIN: Warm and dry. Crusted vesicular rash in dermatomal distribution over the right shoulder and back to the midline of the right chest. HEENT: Normocephalic. Pupils equal and round. Mucous membranes pink and moist. CARDIOVASCULAR: Regular rate and rhythm. No murmur appreciated. RESPIRATORY: No accessory muscle use. Clear to auscultation. Breath sounds equal bilaterally. GASTROINTESTINAL: Abdomen soft, non-tender, nondistended. Bowel sounds x4. : Mckeon catheter in place. Mckeon collecting bag with some hematuria. Urethral meatus with some dried blood. MUSCULOSKELETAL: No obvious deformities. No clubbing or cyanosis. No edema. NEUROLOGICAL: Awake and alert. Unable to lift right arm or leg against gravity. Strength 4/5 on the left. Normal speech. PSYCHIATRIC: Appropriate mood and affect; insight and judgment normal. 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 fib, HTN, DM, hypothyroidism, neuropathy, GERD who was sent from SNF for UTI Klebsiella pneumonia UTI with suspected severe sepsis UA with evidence of infection. Rectal temperature 99.9. Temp reportedly 101.9 earlier today, received Bactrim and Tylenol. Tachycardia. No leukocytosis. Lactic acid 3.0. Status post IV cefepime. Lactic acid improved later on, switch to Levaquin at discharge Patient had Shingles Lesions already appear to be healing. Continue the patient on Valtrex. Will need shingles vaccination when clinically improved. Thrombocytopenia Platelets 65, and a previous labs for comparison. Secondary to acute infection Follow-up CBC. Seem to be stable Partial paralysis Secondary to recent spinal surgery. Continue PT. Outpatient neurosurgery follow-up. Atrial fibrillation Continue metoprolol, Multaq. No anticoagulation for now thrombocytopenia. Monitor on telemetry. Diabetes mellitus Hold home glipizide. SSI with Accu-Cheks. [id number] encounter performed with the patient on discharge day, as well as physical exam, summary of hospitalization course and postdischarge plan has been D/W the patient. D/W nurse pt to go back to SNF Discharge medications reviewed and printed and signed, post discharge follow up visit with PCP and other specialist as well as Brief hospital course and discharge summary has been placed. Pt Condition on Discharge: Fair Discharge Disposition: Discharge to SNF Discharge Time: > 30 minutes Discharge Instructions DIET: Follow Instructions for: Heart Healthy Diet, Diabetic Diet Activities you can perform: See Additionl Instruction Other Activity Instructions: per PT recs New Medications: Ciprofloxacin (Cipro) 500 Mg Tab 500 MG PO BID Infection #14 Ref 0 TAB Valacyclovir (Valtrex) 500 Mg Tab 1000 MG PO Q8HR shingles #15 TAB Continued Medications: Dronedarone (Multaq) 400 Mg Tab 400 MG PO BID Regulate Heart Beat Ref 0 TAB Famotidine (Famotidine) 20 Mg Tab 20 MG PO BID #60 Ref 0 TAB Furosemide (Furosemide) 20 Mg Tab 20 MG PO DAILY #30 Ref 0 TAB Gabapentin (Gabapentin) 100 Mg Cap 100 MG PO TID #90 Ref 0 CAP Glipizide (Glipizide) 5 Mg Tab 5 MG PO DAILY Take 30 minutes before a meal Blood Sugar Management #30 Ref 0 TAB Lactobacillus Rhamnosus (GG) (Culturelle) 10 B Cell Cap 1 CAP PO DAILY Nutritional Supplement Ref 0 CAP Levothyroxine (Levothyroxine) 50 Mcg Tab 50 MCG PO DAILY Thyroid #30 Ref 0 TAB Lisinopril (Lisinopril) 2.5 Mg Tab 2.5 MG PO DAILY #30 Ref 0 TAB Metoprolol Tartrate (Metoprolol Tartrate) 25 Mg Tab 25 MG PO BID #60 Ref 0 TAB Polyethylene Glycol 3350 Powder (Polyethylene Glycol 3350 Powder) 17 Gm Pow 17 GM PO DAILY Constipation #1 Ref 0 BOTTLE Potassium Chloride ER (Potassium Chloride ER) 20 Meq Tab 20 MEQ PO DAILY Electrolyte Replacement #30 Ref 0 TAB Fito Blood MD Apr 01, 2017 17:53
[2017-04-03] MEDS ORDERED: BACT400T PO (12:59)
== END 2017-04-01 15:38 | DRG 690 ==
LOC: NEPE 15:26 → NEDA 17:20 → N04A 19:15
PROVIDERS: ADMIT Hospitalist; ATTEND Hospitalist
DX: N39.0 Urinary tract infection, site not specified (principal); D69.6 Thrombocytopenia, unspecified; I48.91 Unspecified atrial fibrillation; B02.9 Zoster without complications; G62.9 Polyneuropathy, unspecified; G83.9 Paralytic syndrome, unspecified; I10 Essential (primary) hypertension; J98.11 Atelectasis; B96.1 Klebsiella pneumoniae [K. pneumoniae] as the cause of diseases classified elsewhere; E11.9 Type 2 diabetes mellitus without complications; E03.9 Hypothyroidism, unspecified; K21.9 Gastro-esophageal reflux disease without esophagitis; K59.00 Constipation, unspecified; F41.9 Anxiety disorder, unspecified; Z87.891 Personal history of nicotine dependence
CPT/HCPCS: 51702; 71010; 80048; 80053; 81001; 82948; 83605; 85025; 87040; 87077; 87086; 87186; 96360; 96365; J0692; J2405; J3370; J7030; J7040